=== PATIENT | male | born 1960 | race African-American/Black ===

== ENCOUNTER 2021-10-07 18:00 | Emergency (ER) | payer OTHER ==
[2021-10-07 18:38] LABS: Hemoglobin 11.5 g/dL (13.5-17.5); Mean Corpuscular Hemoglobin 26.8 pg (27.0-33.0); Mean Corpuscular Volume 83.7 fl (81.2-95.1); Platelet Count 73 10x3/uL (150-450); RBC Distribution Width 14.7 % (11.5-14.5); Red Blood Cell (RBC) Count 4.29 10x6/uL (4.32-5.72); White Blood Cell (WBC) Count 4.3 10x3/uL (3.5-10.5)
[2021-10-07 18:51] LABS: ALT (SGPT) 17 U/L (8-55); AST (SGOT) 26 U/L (5-34); Albumin 4.2 g/dL (3.4-4.8); Alkaline Phosphatase 88 U/L (40-110); Anion Gap 14 mmol/L (10-20); BUN (Urea Nitrogen) 33 mg/dL (8.4-25.7); Bilirubin, Total 0.6 mg/dL (0.2-1.2); CK (CPK) 290 U/L (30-200); Calc. Creatinine Clearance 0 mL/min (70-130); Carbon Dioxide 26 mmol/L (23-31); Chloride 105 mmol/L (98-107); Globulin 2.9 g/dL (2.4-3.5); Glucose 121 mg/dL (80-115); Potassium 3.5 mmol/L (3.5-5.1); Protein, Total 7.1 g/dL (5.8-8.1); Sodium 141 mmol/L (136-145)
[2021-10-07 19:06] LABS: MDiff Complete? YES
[2021-10-07 19:13] LABS: Lymphocytes 10 % (21-51); Monocytes 17 % (0-10); Neutrophil 73 % (42-75)
[2021-10-07 19:14] LABS: INR-International Normal Ratio 1.1; PTT 28.8 sec (22.0-33.0); Prothrombin Time 12.3 sec (9.5-12.1)
[2021-10-07 19:16] LABS: Platelet Morphology Comment Appears Decreased
[2021-10-07] MEDS ORDERED: Cefepime 2 GM VIAL ONE (19:19)
[2021-10-07] MEDS ORDERED: Aspirin Chewable 81 MG TAB ONE (19:31)
[2021-10-07 19:34] LABS: Bilirubin Neg (Negative); Blood, Urine Negative (Negative); Clarity Clear (Clear); Glucose, Urine (Dipstick) Normal (Negative); Ketone, Urine Negative (Negative); Leukocyte Negative (Negative); Nitrite Negative (Negative); Protein, Urine (Dipstick) Negative (Neg-Trace); Specific Gravity, Urine 1.005 (1.002-1.036); Urobilinogen Normal mg/dL (Less than 2)
[2021-10-07 19:39] LABS: SARS-CoV-2 NAA Rapid Test Not Detected (NotDetected)
[2021-10-07] MEDS ORDERED: Oseltamivir 75 MG CAP PO SCH (20:00)
== END 2021-10-07 22:33 | disposition short-term general hospital (02) ==
LOC: CSHERS 18:00
DX: J11.1 Influenza due to unidentified influenza virus with other respiratory manifestations (principal); J18.9 Pneumonia, unspecified organism; R77.8 Other specified abnormalities of plasma proteins; Z20.822 Contact with and (suspected) exposure to COVID-19; I50.9 Heart failure, unspecified; I25.10 Atherosclerotic heart disease of native coronary artery without angina pectoris; M10.9 Gout, unspecified; M19.90 Unspecified osteoarthritis, unspecified site; E11.9 Type 2 diabetes mellitus without complications
CPT/HCPCS: 0240U; 36415; 71045; 80053; 81003; 82550; 82553; 83605; 83880; 84484; 85025; 85610; 85730; 87040; 87086; 93005; 93010; 96365; 96366; 96367; J0692; J3370

== ENCOUNTER 2022-10-08 08:48 | Inpatient (IN) | payer OTHER ==
[2022-10-08 09:19] LABS: #Monocytes 0.3 10x3/uL (0.0-1.1); %Basophils 0.4 % (0.0-2.0); %Eosinophils 0.7 % (0.0-6.0); %Lymphocytes 18.6 % (18.0-47.0); %Monocytes 8.9 % (0.0-10.0); Hemoglobin 11.1 g/dL (13.5-17.5); Mean Corpuscular HGB CONC 32.3 g/dL (32.0-36.0); Mean Corpuscular Hemoglobin 26.9 pg (27.0-33.0); Mean Corpuscular Volume 83.3 fl (81.2-95.1); Mean Platelet Volume 12.3 fl (7.4-10.4); Platelet Count 94 10x3/uL (150-450); RBC Distribution Width 15.4 % (11.5-14.5); Red Blood Cell (RBC) Count 4.13 10x6/uL (4.32-5.72); White Blood Cell (WBC) Count 2.8 10x3/uL (3.5-10.5)
[2022-10-08 09:27] LABS: INR-International Normal Ratio 1.8; PTT 28.6 sec (22.0-33.0); Prothrombin Time 19.3 sec (9.5-12.1)
[2022-10-08 09:29] LABS: Bilirubin Neg (Negative); Blood, Urine Negative (Negative); Clarity Clear (Clear); Glucose, Urine (Dipstick) 50 mg/dL (Negative); Ketone, Urine Negative (Negative); Leukocyte Negative (Negative); Nitrite Negative (Negative); Protein, Urine (Dipstick) 30 mg/dl (Neg-Trace); Specific Gravity, Urine 1.005 (1.005-1.030); Urobilinogen Normal mg/dL (Less than 2)
[2022-10-08 09:32] LABS: ALT (SGPT) 16 U/L (8-55); AST (SGOT) 21 U/L (5-34); Albumin 3.9 g/dL (3.4-4.8); Alkaline Phosphatase 109 U/L (40-110); Anion Gap 12 mmol/L (10-20); BUN (Urea Nitrogen) 16 mg/dL (8.4-25.7); Bilirubin, Total 1.3 mg/dL (0.2-1.2); CK (CPK) 239 U/L (30-200); Calc. Creatinine Clearance 0 mL/min (70-130); Calcium 8.2 mg/dL (7.8-10.44); Carbon Dioxide 30 mmol/L (23-31); Chloride 104 mmol/L (98-107); Estimated GFR 70; Globulin 2.2 g/dL (2.4-3.5); Glucose 189 mg/dL (80-115); Lipase 15 U/L (8-78); Potassium 3.2 mmol/L (3.5-5.1); Protein, Total 6.1 g/dL (5.8-8.1); Sodium 143 mmol/L (136-145)
[2022-10-08 09:38] LABS: Bacteria/HPF None Seen HPF (None Seen); Squamous Epithelial None Seen HPF (0-3); WBC/HPF 0-3 HPF (0-3)
[2022-10-08 09:41] LABS: Ovalocytes SLIGHT = 2-5 cells (100X) (0-1/hpf)
[2022-10-08 09:42] LABS: Platelet Morphology Comment Appears Decreased
[2022-10-08] MEDS ORDERED: Aspirin Chewable 81 MG TAB ONE (09:50)
[2022-10-08 10:32] LABS: SARS-CoV-2 NAA Rapid Test Not Detected (NotDetected)
[2022-10-08 14:00] LABS: Troponin I 0.022 ng/mL (< 0.028)
[2022-10-08] MEDS ORDERED: Ondansetron PF 4 MG/2 ML Vial IVP PRN (14:08)
[2022-10-08] MEDS ORDERED: Ondansetron ODT 4 MG TAB PO PRN (14:08)
[2022-10-08] MEDS ORDERED: Acetaminophen 650 MG Suppository PR PRN (14:08)
[2022-10-08] MEDS ORDERED: Acetaminophen 325 MG TAB PO PRN (14:08)
[2022-10-08] MEDS ORDERED: Dextrose 5% in Water 1,000 ML IV PRN (14:11)
[2022-10-08] MEDS ORDERED: Insulin Regular 300 UNITS/3 ML VIAL SC PRN (14:11)
[2022-10-08] MEDS ORDERED: Dextrose 50% Abboject 50 ML SYRINGE SLOW IVP PRN (14:11)
[2022-10-08 16:58] VITALS: BMI 32.7
[2022-10-08] MEDS ORDERED: Warfarin Sodium 2.5 MG TAB PO SCH (17:00)
[2022-10-08] MEDS ORDERED: Warfarin Sodium 5 MG TAB PO SCH (18:00)
[2022-10-08] MEDS: Mometasone 100 MCG/PUFF (1 INHALER) INH SCH (20:00)
[2022-10-08] MEDS: NPH, Human Insulin Isophane 300 UNIT/3 ML VIAL SC SCH (21:25)
[2022-10-08] MEDS ORDERED: Terazosin HCl 5 MG CAP PO SCH (22:45)
[2022-10-08] MEDS ORDERED: Carvedilol 25 MG TAB PO SCH (22:45)
[2022-10-08] MEDS ORDERED: Furosemide 40 MG TAB PO SCH (22:45)
[2022-10-08] MEDS ORDERED: Venlafaxine HCl XR 75 MG CAP PO SCH (22:45)
[2022-10-09] MEDS: Ipratropium/Albuterol 3 ML NEB NEB PRN ×2 (02:00→16:23)
[2022-10-09] MEDS ORDERED: Furosemide 40 MG TAB PO SCH ×2 (06:00→09:00)
[2022-10-09 06:14] LABS: Anion Gap 10 mmol/L (10-20); BUN (Urea Nitrogen) 16 mg/dL (8.4-25.7); Calc. Creatinine Clearance 107 mL/min (70-130); Calcium 8.9 mg/dL (7.8-10.44); Carbon Dioxide 32 mmol/L (23-31); Chloride 106 mmol/L (98-107); Estimated GFR 74; Glucose 157 mg/dL (80-115); Potassium 3.3 mmol/L (3.5-5.1); Sodium 145 mmol/L (136-145)
[2022-10-09 06:17] LABS: INR-International Normal Ratio 1.9; Prothrombin Time 20.3 sec (9.5-12.1)
[2022-10-09 06:19] LABS: #Monocytes 0.4 10x3/uL (0.0-1.1); %Basophils 0.5 % (0.0-2.0); %Eosinophils 0.5 % (0.0-6.0); %Lymphocytes 18.4 % (18.0-47.0); %Neutrophils 70.4 % (40.0-75.0); Hemoglobin 11.3 g/dL (13.5-17.5); Mean Corpuscular HGB CONC 32.3 g/dL (32.0-36.0); Mean Corpuscular Volume 83.5 fl (81.2-95.1); Mean Platelet Volume 11.5 fl (7.4-10.4); Platelet Count 98 10x3/uL (150-450); RBC Distribution Width 15.7 % (11.5-14.5); Red Blood Cell (RBC) Count 4.19 10x6/uL (4.32-5.72); White Blood Cell (WBC) Count 4.2 10x3/uL (3.5-10.5)
[2022-10-09] MEDS ORDERED: Mometasone 100 MCG/PUFF (1 INHALER) INH SCH (06:30)
[2022-10-09] MEDS: Mometasone 100 MCG/PUFF (1 INHALER) INH SCH ×2 (07:19→19:40)
[2022-10-09] MEDS ORDERED: Potassium Chloride 20 MEQ TAB PO SCH (08:00)
[2022-10-09] MEDS ORDERED: Electrolyte Replacement Protocol 1 EACH FS SCH (08:00)
[2022-10-09] MEDS: Allopurinol 100 MG TAB PO SCH (08:44)
[2022-10-09] MEDS: Carvedilol 25 MG TAB PO SCH ×2 (08:44→18:43)
[2022-10-09] MEDS: Spironolactone 25 MG TAB PO SCH (08:44)
[2022-10-09] MEDS: Atorvastatin Calcium 40 MG TAB PO SCH (08:44)
[2022-10-09] MEDS: NPH, Human Insulin Isophane 300 UNIT/3 ML VIAL SC SCH ×2 (08:45→21:53)
[2022-10-09] MEDS ORDERED: Lisinopril 20 MG TAB PO SCH (09:00)
[2022-10-09] MEDS: Insulin Regular 300 UNITS/3 ML VIAL SC PRN (12:27)
[2022-10-09] MEDS ORDERED: Warfarin Sodium 5 MG TAB PO SCH (17:00)
[2022-10-09] MEDS ORDERED: Venlafaxine HCl XR 75 MG CAP PO SCH (21:00)
[2022-10-09] MEDS ORDERED: Terazosin HCl 5 MG CAP PO SCH (21:00)
[2022-10-09] MEDS: Furosemide 40 MG TAB PO SCH (21:42)
[2022-10-10 05:00] LABS: INR-International Normal Ratio 1.9; Prothrombin Time 20.1 sec (9.5-12.1)
[2022-10-10 05:03] LABS: #Monocytes 0.4 10x3/uL (0.0-1.1); #Neutrophils 2.6 10x3/uL (1.5-8.4); %Basophils 0.8 % (0.0-2.0); %Eosinophils 0.8 % (0.0-6.0); %Lymphocytes 19.6 % (18.0-47.0); %Monocytes 10.7 % (0.0-10.0); %Neutrophils 67.8 % (40.0-75.0); Hemoglobin 11.3 g/dL (13.5-17.5); Mean Corpuscular HGB CONC 31.7 g/dL (32.0-36.0); Mean Corpuscular Hemoglobin 26.8 pg (27.0-33.0); Mean Corpuscular Volume 84.6 fl (81.2-95.1); Mean Platelet Volume 11.7 fl (7.4-10.4); Platelet Count 98 10x3/uL (150-450); RBC Distribution Width 15.6 % (11.5-14.5); Red Blood Cell (RBC) Count 4.22 10x6/uL (4.32-5.72); White Blood Cell (WBC) Count 3.7 10x3/uL (3.5-10.5)
[2022-10-10 05:06] LABS: Anion Gap 13 mmol/L (10-20); BUN (Urea Nitrogen) 19 mg/dL (8.4-25.7); Calc. Creatinine Clearance 97 mL/min (70-130); Carbon Dioxide 27 mmol/L (23-31); Chloride 109 mmol/L (98-107); Estimated GFR 66; Glucose 131 mg/dL (80-115); Magnesium 1.9 mg/dL (1.6-2.6); Potassium 3.7 mmol/L (3.5-5.1); Sodium 145 mmol/L (136-145)
[2022-10-10] MEDS ORDERED: Magnesium 2 GM/50 ML(in water) 2 GM in Premix Bag 1 BAG IVPB SCH (06:00)
[2022-10-10] MEDS: Mometasone 100 MCG/PUFF (1 INHALER) INH SCH (07:45)
[2022-10-10] MEDS ORDERED: Amlodipine 5 MG TAB PO SCH (09:00)
[2022-10-10] MEDS ORDERED: Lisinopril 20 MG TAB PO SCH (09:00)
[2022-10-10] MEDS: Carvedilol 25 MG TAB PO SCH (09:25)
[2022-10-10] MEDS: Allopurinol 100 MG TAB PO SCH (09:25)
[2022-10-10] MEDS: Furosemide 40 MG TAB PO SCH (09:25)
[2022-10-10] MEDS: NPH, Human Insulin Isophane 300 UNIT/3 ML VIAL SC SCH (09:25)
[2022-10-10] MEDS: Atorvastatin Calcium 40 MG TAB PO SCH (09:25)
[2022-10-10] MEDS: Spironolactone 25 MG TAB PO SCH (09:25)
[2022-10-10] MEDS: Insulin Regular 300 UNITS/3 ML VIAL SC PRN (11:55)
[2022-10-10 13:34] VITALS: BP 119/93; TEMP 98.3
[2022-10-10] MEDS ORDERED: Warfarin Sodium 2.5 MG TAB PO SCH (17:00)
[2022-10-11] MEDS ORDERED: FLU VACC QS2022-23(6MOS UP)/PF 60 MCG/0.5 ML SYRINGE IM ONE (17:15)
== END 2022-10-10 14:16 | DRG 291 ==
LOC: CSHERS 08:48 → EEVIPCON 15:39 → CSHTELE 15:39 → OBSVTOIN 10-09 16:29
PROVIDERS: ADMIT Nurse Practitioner Family; ATTEND Family Medicine
DX: I11.0 Hypertensive heart disease with heart failure (principal); I50.43 Acute on chronic combined systolic (congestive) and diastolic (congestive) heart failure; J96.01 Acute respiratory failure with hypoxia; I48.20 Chronic atrial fibrillation, unspecified; I95.2 Hypotension due to drugs; M10.9 Gout, unspecified; I73.9 Peripheral vascular disease, unspecified; E78.5 Hyperlipidemia, unspecified; I25.10 Atherosclerotic heart disease of native coronary artery without angina pectoris; E11.51 Type 2 diabetes mellitus with diabetic peripheral angiopathy without gangrene; J44.9 Chronic obstructive pulmonary disease, unspecified; Z20.822 Contact with and (suspected) exposure to COVID-19; M19.90 Unspecified osteoarthritis, unspecified site; F32.A Depression, unspecified; T50.905A Adverse effect of unspecified drugs, medicaments and biological substances, initial encounter; I48.0 Paroxysmal atrial fibrillation; Z79.01 Long term (current) use of anticoagulants; Z95.810 Presence of automatic (implantable) cardiac defibrillator
CPT/HCPCS: 36415; 36416; 70450; 71045; 80048; 80053; 81003; 81015; 82550; 83605; 83690; 83735; 83880; 84443; 84484; 85025; 85610; 85730; 93005; 93306; 94640; 94664; 94760; J1815; J3475; J7620; U0002

== ENCOUNTER 2022-12-06 11:41 | Inpatient (IN) | payer OTHER ==
[2022-12-06 12:29] LABS: #Eosinphils 0.1 10x3/uL (0.0-0.5); #Monocytes 0.5 10x3/uL (0.0-1.1); #Neutrophils 2.8 10x3/uL (1.5-8.4); %Basophils 0.5 % (0.0-2.0); %Eosinophils 1.2 % (0.0-6.0); %Lymphocytes 17.6 % (18.0-47.0); %Monocytes 13.2 % (0.0-10.0); %Neutrophils 67.3 % (40.0-75.0); Hemoglobin 12.3 g/dL (13.5-17.5); Mean Corpuscular HGB CONC 31.8 g/dL (32.0-36.0); Mean Corpuscular Hemoglobin 25.3 pg (27.0-33.0); Mean Corpuscular Volume 79.5 fl (81.2-95.1); Platelet Count 113 10x3/uL (150-450); RBC Distribution Width 14.4 % (11.5-14.5); Red Blood Cell (RBC) Count 4.87 10x6/uL (4.32-5.72); White Blood Cell (WBC) Count 4.1 10x3/uL (3.5-10.5)
[2022-12-06 12:47] LABS: ALT (SGPT) 15 U/L (8-55); AST (SGOT) 17 U/L (5-34); Acetaminophen Less than 10.0 mcg/mL (10.0-30.0); Albumin 4.1 g/dL (3.4-4.8); Alkaline Phosphatase 125 U/L (40-110); Anion Gap 14 mmol/L (10-20); BUN (Urea Nitrogen) 17 mg/dL (8.4-25.7); Bilirubin, Total 0.9 mg/dL (0.2-1.2); Calc. Creatinine Clearance 0 mL/min (70-130); Calcium 8.9 mg/dL (7.8-10.44); Carbon Dioxide 27 mmol/L (23-31); Chloride 104 mmol/L (98-107); Estimated GFR 64; Globulin 2.4 g/dL (2.4-3.5); Glucose 148 mg/dL (80-115); Potassium 3.8 mmol/L (3.5-5.1); Protein, Total 6.5 g/dL (5.8-8.1); Salicylate Less than 8.0 mg/dL (15.0-30.0); Sodium 141 mmol/L (136-145)
[2022-12-06 12:53] LABS: Bilirubin Neg (Negative); Blood, Urine Negative (Negative); Clarity Clear (Clear); Glucose, Urine (Dipstick) Normal (Negative); Ketone, Urine Negative (Negative); Leukocyte Negative (Negative); Nitrite Negative (Negative); Protein, Urine (Dipstick) 100 mg/dl (Neg-Trace); Urobilinogen Normal mg/dL (Less than 2)
[2022-12-06 13:26] LABS: Bacteria/HPF None Seen HPF (None Seen); RBC/HPF None Seen HPF (0-3); Squamous Epithelial None Seen HPF (0-3); WBC/HPF None Seen HPF (0-3)
[2022-12-06 13:27] LABS: D-Dimer Test 0.22 mg/L FEU (0.19-0.50); INR-International Normal Ratio 2.7; PTT 35.9 sec (22.0-33.0); Prothrombin Time 27.6 sec (9.5-12.1)
[2022-12-06 13:37] LABS: Alcohol Less than 10 mg/dL (Less than 10)
[2022-12-06 14:00] LABS: SARS-CoV-2 NAA Rapid Test Not Detected (NotDetected)
[2022-12-06 14:31] LABS: Magnesium 1.8 mg/dL (1.6-2.6)
[2022-12-06] MEDS ORDERED: Dextrose 5% in Water 1,000 ML IV PRN (18:57)
[2022-12-06] MEDS ORDERED: Dextrose 50% Abboject 50 ML SYRINGE SLOW IVP PRN (18:57)
[2022-12-06] MEDS ORDERED: HumaLOG 300 UNITS/3 ML VIAL SC PRN ×2 (18:57)
[2022-12-06] MEDS ORDERED: Senokot S 8.6-50 MG TAB PO PRN (18:58)
[2022-12-06] MEDS ORDERED: Ondansetron ODT 4 MG TAB PO PRN (18:58)
[2022-12-06] MEDS ORDERED: Ondansetron PF 4 MG/2 ML Vial IVP PRN (18:58)
[2022-12-06] MEDS ORDERED: Electrolyte Replacement Protocol 1 EACH FS SCH (19:00)
[2022-12-06] MEDS ORDERED: Spironolactone 25 MG TAB PO SCH (20:00)
[2022-12-06] MEDS ORDERED: Furosemide 40 MG/4 ML VIAL SLOW IVP SCH (20:00)
[2022-12-06 20:10] LABS: Troponin I 0.028 ng/mL (< 0.028)
[2022-12-06 20:15] VITALS: BMI 33.6
[2022-12-06] MEDS: Venlafaxine HCl XR 75 MG CAP PO SCH (20:16)
[2022-12-06] MEDS: Carvedilol 25 MG TAB PO SCH (20:17)
[2022-12-06] MEDS: Insulin NPH Human Isophane 100 UNIT/ML (10 ML VIAL) SC SCH (20:24)
[2022-12-06] MEDS ORDERED: Magnesium 2 GM/50 ML(in water) 2 GM in Premix Bag 1 BAG IVPB SCH (21:00)
[2022-12-07 05:25] LABS: #Monocytes 0.5 10x3/uL (0.0-1.1); #Neutrophils 3.4 10x3/uL (1.5-8.4); %Basophils 0.4 % (0.0-2.0); %Eosinophils 0.8 % (0.0-6.0); %Lymphocytes 17.9 % (18.0-47.0); %Monocytes 10.2 % (0.0-10.0); %Neutrophils 70.5 % (40.0-75.0); Hemoglobin 12.9 g/dL (13.5-17.5); Mean Corpuscular HGB CONC 31.9 g/dL (32.0-36.0); Mean Corpuscular Hemoglobin 25.4 pg (27.0-33.0); Mean Corpuscular Volume 79.7 fl (81.2-95.1); Mean Platelet Volume 12.3 fl (7.4-10.4); Platelet Count 131 10x3/uL (150-450); RBC Distribution Width 14.6 % (11.5-14.5); Red Blood Cell (RBC) Count 5.07 10x6/uL (4.32-5.72); White Blood Cell (WBC) Count 4.8 10x3/uL (3.5-10.5)
[2022-12-07 05:28] LABS: INR-International Normal Ratio 2.5; Prothrombin Time 25.8 sec (9.5-12.1)
[2022-12-07 05:35] LABS: Anion Gap 14 mmol/L (10-20); BUN (Urea Nitrogen) 18 mg/dL (8.4-25.7); Calc. Creatinine Clearance 97 mL/min (70-130); Calcium 9.2 mg/dL (7.8-10.44); Carbon Dioxide 27 mmol/L (23-31); Chloride 105 mmol/L (98-107); Estimated GFR 66; Glucose 142 mg/dL (80-115); Magnesium 2.4 mg/dL (1.6-2.6); Potassium 4.4 mmol/L (3.5-5.1); Sodium 142 mmol/L (136-145)
[2022-12-07] MEDS: Mometasone 100 MCG/PUFF (1 INHALER) INH SCH ×2 (07:14→20:59)
[2022-12-07] MEDS ORDERED: Spironolactone 25 MG TAB PO SCH (09:00)
[2022-12-07] MEDS: Atorvastatin Calcium 40 MG TAB PO SCH (09:04)
[2022-12-07] MEDS: Spironolactone 25 MG TAB PO SCH (09:04)
[2022-12-07] MEDS: Carvedilol 25 MG TAB PO SCH ×2 (09:04→20:26)
[2022-12-07] MEDS: Furosemide 40 MG/4 ML VIAL SLOW IVP SCH (09:04)
[2022-12-07] MEDS: Lisinopril 20 MG TAB PO SCH (09:04)
[2022-12-07] MEDS: Insulin NPH Human Isophane 100 UNIT/ML (10 ML VIAL) SC SCH ×2 (09:13→20:29)
[2022-12-07] MEDS: Allopurinol 100 MG TAB PO SCH (09:13)
[2022-12-07] MEDS: Warfarin Sodium 5 MG TAB PO SCH (16:57)
[2022-12-07] MEDS: Venlafaxine HCl XR 75 MG CAP PO SCH (20:26)
[2022-12-08 06:10] LABS: INR-International Normal Ratio 1.9; Prothrombin Time 19.8 sec (9.5-12.1)
[2022-12-08] MEDS: Mometasone 100 MCG/PUFF (1 INHALER) INH SCH ×2 (07:30→20:05)
[2022-12-08] MEDS: Furosemide 40 MG/4 ML VIAL SLOW IVP SCH (11:31)
[2022-12-08] MEDS: Insulin NPH Human Isophane 100 UNIT/ML (10 ML VIAL) SC SCH ×2 (11:38→21:03)
[2022-12-08] MEDS: Allopurinol 100 MG TAB PO SCH (11:39)
[2022-12-08] MEDS: Lisinopril 20 MG TAB PO SCH (11:39)
[2022-12-08] MEDS: Atorvastatin Calcium 40 MG TAB PO SCH (11:40)
[2022-12-08] MEDS: Carvedilol 25 MG TAB PO SCH ×2 (11:40→20:55)
[2022-12-08] MEDS: Spironolactone 25 MG TAB PO SCH (12:05)
[2022-12-08] MEDS: Acetaminophen 325 MG TAB PO PRN ×2 (12:05→21:45)
[2022-12-08] MEDS: Warfarin Sodium 5 MG TAB PO SCH (16:04)
[2022-12-08] MEDS ORDERED: Warfarin Sodium 2.5 MG TAB PO SCH (17:00)
[2022-12-08 18:53] LABS: #Eosinphils 0.1 10x3/uL (0.0-0.5); #Monocytes 0.5 10x3/uL (0.0-1.1); #Neutrophils 3.6 10x3/uL (1.5-8.4); %Basophils 0.6 % (0.0-2.0); %Eosinophils 0.9 % (0.0-6.0); %Lymphocytes 21.6 % (18.0-47.0); %Monocytes 9.5 % (0.0-10.0); %Neutrophils 67.2 % (40.0-75.0); Hemoglobin 12.8 g/dL (13.5-17.5); Mean Corpuscular HGB CONC 31.1 g/dL (32.0-36.0); Mean Corpuscular Hemoglobin 24.9 pg (27.0-33.0); Mean Platelet Volume 12.2 fl (7.4-10.4); Platelet Count 132 10x3/uL (150-450); RBC Distribution Width 14.7 % (11.5-14.5); Red Blood Cell (RBC) Count 5.14 10x6/uL (4.32-5.72); White Blood Cell (WBC) Count 5.4 10x3/uL (3.5-10.5)
[2022-12-08 19:08] LABS: ALT (SGPT) 13 U/L (8-55); AST (SGOT) 15 U/L (5-34); Albumin 3.9 g/dL (3.4-4.8); Alkaline Phosphatase 124 U/L (40-110); Anion Gap 14 mmol/L (10-20); BUN (Urea Nitrogen) 22 mg/dL (8.4-25.7); Bilirubin, Total 0.9 mg/dL (0.2-1.2); Calc. Creatinine Clearance 88 mL/min (70-130); Calcium 9.3 mg/dL (7.8-10.44); Carbon Dioxide 25 mmol/L (23-31); Chloride 108 mmol/L (98-107); Estimated GFR 60; Globulin 2.4 g/dL (2.4-3.5); Glucose 174 mg/dL (80-115); Protein, Total 6.3 g/dL (5.8-8.1); Sodium 143 mmol/L (136-145)
[2022-12-08] MEDS: Venlafaxine HCl XR 75 MG CAP PO SCH (20:55)
[2022-12-09 06:05] LABS: INR-International Normal Ratio 2.3; Prothrombin Time 23.9 sec (9.5-12.1)
[2022-12-09 06:22] LABS: #Eosinphils 0.1 10x3/uL (0.0-0.5); #Monocytes 0.5 10x3/uL (0.0-1.1); #Neutrophils 3.6 10x3/uL (1.5-8.4); %Basophils 0.4 % (0.0-2.0); %Monocytes 10.2 % (0.0-10.0); %Neutrophils 70.2 % (40.0-75.0); Hemoglobin 13.4 g/dL (13.5-17.5); Mean Corpuscular HGB CONC 30.7 g/dL (32.0-36.0); Mean Corpuscular Hemoglobin 24.9 pg (27.0-33.0); Mean Corpuscular Volume 80.9 fl (81.2-95.1); Mean Platelet Volume 12.3 fl (7.4-10.4); Platelet Count 140 10x3/uL (150-450); RBC Distribution Width 14.9 % (11.5-14.5); Red Blood Cell (RBC) Count 5.39 10x6/uL (4.32-5.72); White Blood Cell (WBC) Count 5.1 10x3/uL (3.5-10.5)
[2022-12-09 06:44] LABS: Anion Gap 16 mmol/L (10-20); BUN (Urea Nitrogen) 23 mg/dL (8.4-25.7); Calc. Creatinine Clearance 96 mL/min (70-130); Calcium 9.8 mg/dL (7.8-10.44); Carbon Dioxide 25 mmol/L (23-31); Chloride 108 mmol/L (98-107); Estimated GFR 67; Glucose 143 mg/dL (80-115); Potassium 4.3 mmol/L (3.5-5.1); Sodium 145 mmol/L (136-145)
[2022-12-09] MEDS: Mometasone 100 MCG/PUFF (1 INHALER) INH SCH (09:30)
[2022-12-09] MEDS: Furosemide 40 MG/4 ML VIAL SLOW IVP SCH (09:50)
[2022-12-09] MEDS: Insulin NPH Human Isophane 100 UNIT/ML (10 ML VIAL) SC SCH (09:51)
[2022-12-09] MEDS: Atorvastatin Calcium 40 MG TAB PO SCH (09:51)
[2022-12-09] MEDS: Allopurinol 100 MG TAB PO SCH (09:52)
[2022-12-09] MEDS: Lisinopril 20 MG TAB PO SCH (09:52)
[2022-12-09] MEDS: Spironolactone 25 MG TAB PO SCH (10:06)
[2022-12-09] MEDS: Carvedilol 25 MG TAB PO SCH (10:07)
[2022-12-09] MEDS ORDERED: Ipratropium Bromide 2.5 ml Neb NEB SCH (15:00)
[2022-12-09 16:50] VITALS: BP 143/65; TEMP 97.1
[2022-12-09] MEDS: Warfarin Sodium 5 MG TAB PO SCH (17:50)
== END 2022-12-09 19:48 | disposition home or self-care (01) | DRG 291 ==
LOC: CSHERS 11:41 → EEVIPCON 11:41 → CSHTELE 18:02 → OBSVTOIN 12-09 13:52
PROVIDERS: ADMIT Internal Medicine; ATTEND Internal Medicine
DX: I11.0 Hypertensive heart disease with heart failure (principal); I50.43 Acute on chronic combined systolic (congestive) and diastolic (congestive) heart failure; I48.92 Unspecified atrial flutter; I48.0 Paroxysmal atrial fibrillation; E78.5 Hyperlipidemia, unspecified; I25.10 Atherosclerotic heart disease of native coronary artery without angina pectoris; E11.51 Type 2 diabetes mellitus with diabetic peripheral angiopathy without gangrene; J44.9 Chronic obstructive pulmonary disease, unspecified; M10.9 Gout, unspecified; F32.A Depression, unspecified; I42.8 Other cardiomyopathies; M19.90 Unspecified osteoarthritis, unspecified site; Z86.73 Personal history of transient ischemic attack (TIA), and cerebral infarction without residual deficits; Z79.01 Long term (current) use of anticoagulants; Z86.711 Personal history of pulmonary embolism; Z95.810 Presence of automatic (implantable) cardiac defibrillator; Z79.899 Other long term (current) drug therapy; Z79.4 Long term (current) use of insulin
CPT/HCPCS: 36415; 36416; 70450; 71045; 80048; 80053; 80307; 81003; 81015; 83605; 83735; 83880; 84146; 84484; 85025; 85379; 85610; 85730; 93005; 93880; 94760; 96365; 96366; 96375; 96376; G0378; J1815; J1940; J3475; J7611; U0002

== ENCOUNTER 2023-11-24 19:07 | Observation (INO) | payer OTHER ==
[2023-11-24 20:35] LABS: Bilirubin Neg (Negative); Blood, Urine Negative (Negative); Clarity Clear (Clear); Glucose, Urine (Dipstick) Normal (Negative); Ketone, Urine Negative (Negative); Leukocyte Negative (Negative); Nitrite Negative (Negative); Protein, Urine (Dipstick) Negative (Neg-Trace); Specific Gravity, Urine 1.015 (1.005-1.030)
[2023-11-24 20:38] LABS: ALT (SGPT) 12 U/L (8-55); AST (SGOT) 21 U/L (5-34); Albumin 4.2 g/dL (3.4-4.8); Alkaline Phosphatase 145 U/L (40-110); Anion Gap 11 mmol/L (10-20); BUN (Urea Nitrogen) 24 mg/dL (8.4-25.7); Bilirubin, Total 1.5 mg/dL (0.2-1.2); Calc. Creatinine Clearance 0 mL/min (70-130); Calcium 9.1 mg/dL (7.8-10.44); Carbon Dioxide 24 mmol/L (23-31); Chloride 107 mmol/L (98-107); Estimated GFR 61; Globulin 2.3 g/dL (2.4-3.5); Glucose 124 mg/dL (80-115); Magnesium 2.1 mg/dL (1.6-2.6); Potassium 3.9 mmol/L (3.5-5.1); Protein, Total 6.5 g/dL (5.8-8.1); Sodium 138 mmol/L (136-145)
[2023-11-24 20:40] LABS: #Monocytes 0.5 10x3/uL (0.0-1.1); #Neutrophils 3.9 10x3/uL (1.5-8.4); %Basophils 0.5 % (0.0-2.0); %Eosinophils 0.4 % (0.0-6.0); %Lymphocytes 18.8 % (18.0-47.0); %Monocytes 9.2 % (0.0-10.0); %Neutrophils 70.9 % (40.0-75.0); Hematocrit 38.5 % (38.8-50.0); Hemoglobin 12.9 g/dL (13.5-17.5); Mean Corpuscular HGB CONC 33.5 g/dL (32.0-36.0); Mean Corpuscular Hemoglobin 28.1 pg (27.0-33.0); Mean Corpuscular Volume 83.9 fl (81.2-95.1); Mean Platelet Volume 12.4 fl (7.4-10.4); Platelet Count 117 10x3/uL (150-450); RBC Distribution Width 13.5 % (11.5-14.5); Red Blood Cell (RBC) Count 4.59 10x6/uL (4.32-5.72); White Blood Cell (WBC) Count 5.5 10x3/uL (3.5-10.5)
[2023-11-24 20:44] LABS: Troponin I 0.513 ng/mL (< 0.028)
[2023-11-24 20:54] LABS: Bacteria/HPF None Seen HPF (None Seen); CAUTI Indications for Culture Pelvic or flank pain; RBC/HPF 0-3 HPF (0-3); Squamous Epithelial 0-3 HPF (0-3); Urine Culture Reflex No No; WBC/HPF 0-3 HPF (0-3)
[2023-11-24 21:03] LABS: Platelet Adequacy Comment Appears Decreased
[2023-11-24] MEDS ORDERED: Aspirin Chewable 81 MG TAB ONE (21:23)
[2023-11-24] MEDS ORDERED: Senokot S 8.6-50 MG TAB PO PRN (23:00)
[2023-11-24] MEDS ORDERED: Ondansetron PF 4 MG/2 ML Vial IVP PRN (23:00)
[2023-11-24] MEDS ORDERED: Dextrose 5% in Water 1,000 ML IV PRN (23:00)
[2023-11-24] MEDS ORDERED: Glucagon 1 MG/ML KIT IM PRN (23:00)
[2023-11-24] MEDS ORDERED: Calcium Carbonate 500 MG ChewTAB PO PRN (23:00)
[2023-11-24] MEDS ORDERED: Guaifenesin DM 100-10/5 ML UDCUP PO PRN (23:00)
[2023-11-24] MEDS ORDERED: Dextrose 50% Abboject 50 ML SYRINGE SLOW IVP PRN (23:00)
[2023-11-24] MEDS ORDERED: Ipratropium/Albuterol 3 ML NEB NEB PRN (23:05)
[2023-11-25 00:05] LABS: Troponin I 0.658 ng/mL (< 0.028)
[2023-11-25] MEDS ORDERED: Potassium Chloride 20 MEQ TAB ONE ×2 (01:23→06:16)
[2023-11-25] MEDS: Potassium Chloride 20 MEQ TAB PO SCH ×2 (01:25→06:18)
[2023-11-25 03:56] LABS: Anion Gap 13 mmol/L (10-20); BUN (Urea Nitrogen) 22 mg/dL (8.4-25.7); Calc. Creatinine Clearance 0 mL/min (70-130); Calcium 9.1 mg/dL (7.8-10.44); Carbon Dioxide 24 mmol/L (23-31); Chloride 107 mmol/L (98-107); Estimated GFR 63; Glucose 118 mg/dL (80-115); Magnesium 2.1 mg/dL (1.6-2.6); Potassium 3.7 mmol/L (3.5-5.1); Sodium 140 mmol/L (136-145)
[2023-11-25 04:05] LABS: Critical Call Chem Troponin I NUR.AEB @0405; Troponin I 0.485 ng/mL (< 0.028)
[2023-11-25] MEDS: Mometasone 100 MCG/PUFF (1 INHALER) INH SCH (07:30)
[2023-11-25] MEDS ORDERED: Lisinopril 20 MG TAB PO SCH (09:00)
[2023-11-25] MEDS ORDERED: FLUTICASONE PROPIONATE 110 MCG PO SCH (09:00)
[2023-11-25] MEDS: Aspirin 81 mg Enteric Coated Tablet PO SCH (10:38)
[2023-11-25] MEDS: Furosemide 40 MG TAB PO SCH (10:38)
[2023-11-25] MEDS: Spironolactone 25 MG TAB PO SCH (10:39)
[2023-11-25] MEDS: Allopurinol 100 MG TAB PO SCH (10:39)
[2023-11-25] MEDS: Lisinopril 10 MG TAB PO SCH (10:40)
[2023-11-25] MEDS: Carvedilol 25 MG TAB PO SCH (10:40)
[2023-11-25] MEDS: Atorvastatin Calcium 40 MG TAB PO SCH (10:41)
[2023-11-25] MEDS: Lactulose 20 GM (30 mL) UDCUP PO SCH (10:42)
[2023-11-25] MEDS: Insulin NPH Human Isophane 100 UNITS/ML (10 ML VIAL) SC SCH (10:51)
[2023-11-25 13:33] VITALS: BMI 33.0
[2023-11-25] MEDS: HumaLOG 300 UNITS/3 ML VIAL SC PRN (16:25)
[2023-11-25] MEDS: Acetaminophen 325 MG TAB PO PRN (16:27)
[2023-11-25] MEDS: Venlafaxine HCl XR 75 MG CAP PO SCH (20:54)
[2023-11-25 21:56] VITALS: BP 121/83; TEMP 98
== END 2023-11-26 00:16 ==
LOC: CSHERS 19:07 → CSHERHOLD 22:51 → UNDOADMOB 22:51 → EEVIPCON 22:51 → CSHERHOLD 11-25 00:29 → CSHTELE 11-25 08:56 → CSHERHOLD 11-25 08:56
PROVIDERS: ADMIT Student in an Organized Health Care Education/Training Program; ATTEND Student in an Organized Health Care Education/Training Program
DX: T82.110A Breakdown (mechanical) of cardiac electrode, initial encounter (principal); Y71.8 Miscellaneous cardiovascular devices associated with adverse incidents, not elsewhere classified; I21.4 Non-ST elevation (NSTEMI) myocardial infarction; I42.8 Other cardiomyopathies; I73.9 Peripheral vascular disease, unspecified; I48.0 Paroxysmal atrial fibrillation; E11.9 Type 2 diabetes mellitus without complications; I10 Essential (primary) hypertension; E78.5 Hyperlipidemia, unspecified; F32.A Depression, unspecified; J44.9 Chronic obstructive pulmonary disease, unspecified; Z79.01 Long term (current) use of anticoagulants; Z86.711 Personal history of pulmonary embolism; Z79.4 Long term (current) use of insulin; Z79.899 Other long term (current) drug therapy; Z79.52 Long term (current) use of systemic steroids; Z86.73 Personal history of transient ischemic attack (TIA), and cerebral infarction without residual deficits; Z87.891 Personal history of nicotine dependence; Z95.810 Presence of automatic (implantable) cardiac defibrillator
CPT/HCPCS: 36415; 36416; 71045; 80048; 80053; 81001; 83735; 83880; 84443; 84484; 85025; 93005; 93306; 94664; J1815

== ENCOUNTER 2025-05-27 17:55 | Emergency (ER) | payer OTHER ==
[2025-05-27 19:19] LABS: #Basophils 0.03 10x3/uL (0.0-0.2); #Eosinophils 0.03 10x3/uL (0.0-0.5); #Monocytes 0.66 10x3/uL (0.0-1.1); #Neutrophils 3.24 10x3/uL (1.5-8.4); %Basophils 0.6 % (0.0-2.0); %Eosinophils 0.6 % (0.0-6.0); %Lymphocytes 23.8 % (18.0-47.0); %Monocytes 12.7 % (0.0-10.0); %Neutrophils 62.1 % (40.0-75.0); Hematocrit 41.3 % (38.8-50.0); Hemoglobin 13.5 g/dL (13.5-17.5); Mean Corpuscular Hemoglobin 26.8 pg (27.0-33.0); Mean Corpuscular Volume 81.9 fL (81.2-95.1); Platelet Count 158 10x3/uL (150-450); Red Blood Cell (RBC) Count 5.04 10x6/uL (4.32-5.72); White Blood Cell (WBC) Count 5.21 10x3/uL (3.5-10.5)
[2025-05-27 19:36] LABS: ALT (SGPT) 13 U/L (Less than 45); AST (SGOT) 26 U/L (11-34); Albumin 3.8 g/dL (3.1-4.5); Alkaline Phosphatase 110 U/L (40-110); Anion Gap 14 mmol/L (10-20); BUN (Urea Nitrogen) 31 mg/dL (8.4-25.7); Bilirubin, Total 1.3 mg/dL (0.3-1.2); Calc. Creatinine Clearance 0 mL/min (70-130); Calcium 9.8 mg/dL (7.8-10.44); Carbon Dioxide 28 mmol/L (23-31); Chloride 103 mmol/L (98-107); Globulin 2.7 g/dL (2.4-3.5); Glucose 124 mg/dL (80-115); Magnesium 2.0 mg/dL (1.6-2.6); Potassium 3.8 mmol/L (3.5-5.1); Sodium 141 mmol/L (136-145)
[2025-05-27 19:43] LABS: Troponin I 0.176 ng/mL (< 0.028)
[2025-05-27] MEDS ORDERED: Enoxaparin 100 MG (1 mL) SYRINGE ONE (20:05)
[2025-05-27] MEDS ORDERED: Furosemide 40 MG (4 mL) VIAL ONE (20:05)
[2025-05-27 22:25] LABS: Troponin I 0.299 ng/mL (< 0.028)
== END 2025-05-28 00:07 | disposition short-term general hospital (02) ==
LOC: EEVIPCON 17:55 → CSHERS 17:55
DX: I21.4 Non-ST elevation (NSTEMI) myocardial infarction (principal); I11.0 Hypertensive heart disease with heart failure; I50.9 Heart failure, unspecified; E11.9 Type 2 diabetes mellitus without complications; E78.00 Pure hypercholesterolemia, unspecified; J44.9 Chronic obstructive pulmonary disease, unspecified; Z79.899 Other long term (current) drug therapy; Z79.4 Long term (current) use of insulin; Z87.891 Personal history of nicotine dependence
CPT/HCPCS: 36415; 71045; 80053; 83735; 83880; 84484; 85025; 93005; 93010; 94640; 94760; 96372; 96374; 96375; J0282; J1650; J1940; J7620